=== PATIENT | male | born 1955 | race Caucasian/White ===

== ENCOUNTER 2020-12-24 05:09 | Emergency (ER) | payer MEDICARE, OTHER ==
[~2020-12-24] VITALS: Ht 180.3 cm; Wt 74.8 kg
[2020-12-24] MEDS ORDERED: LISINOPRIL20 MG (05:38)
[2020-12-24] MEDS ORDERED: ATORVASTATIN CA40 MG PO (05:38)
== END 2020-12-24 06:21 | disposition home or self-care (01) ==
LOC: ED 05:09
DX: G89.29 Other chronic pain (principal); M79.604 Pain in right leg; Z59.0 Homelessness; F17.200 Nicotine dependence, unspecified, uncomplicated; Z79.899 Other long term (current) drug therapy
CPT/HCPCS: 99283; A9270

== ENCOUNTER 2020-12-24 06:47 | Emergency (ER) | payer MEDICARE, OTHER ==
[~2020-12-24] VITALS: Ht 180.3 cm; Wt 74.8 kg
[~2020-12-24 06:47] MED LIST: ATORVASTATIN CA40 MG PO; LISINOPRIL20 MG
--- OUTSIDE RECORDS SUMMARY | 2020-12-24 06:50 | XMS ---
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 Daisy has no Care Guidelines for this patient. [facility] (12 MO.) [facility] NOTE: Visits indicate total known visits. ED[facility] [place] (12 MO.) [facility] COMPLAINT: - MULTIPLE COMPLAINTS 12/24/2020 05:10 [facility] [place] TYPE: Emergency COMPLAINT: - MULTIPLE COMPLAINTS INPATIENT VISIT TRACKING (12 MO.) No inpatient visits to display in this time frame [email or web address]
== END 2020-12-24 16:14 | disposition home or self-care (01) ==
LOC: ED 06:47
DX: D64.9 Anemia, unspecified (principal); N28.9 Disorder of kidney and ureter, unspecified; I10 Essential (primary) hypertension; Z59.0 Homelessness; Z20.822 Contact with and (suspected) exposure to COVID-19; F17.200 Nicotine dependence, unspecified, uncomplicated; Z79.899 Other long term (current) drug therapy
CPT/HCPCS: 80053; 85025; 99284; C9803; U0003